=== PATIENT | female | born 1995 | race Caucasian/White ===

== ENCOUNTER 2017-03-04 23:49 | Emergency (ER) | payer OTHER ==
[2017-03-04] MEDS ORDERED: 0.9 % SODIUM CHLORIDE 1,000 ML IV ONE ×2 (23:50→23:51)
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
[2017-03-05 00:16] LABS: BASOPHILS % 0.5 (0.0-1.5); EOSINOPHILS % 0.8 % (0.0-6.8); MEAN CORPUSCULAR HEMOGLOBIN 29.9 pg (28.0-34.0); MEAN CORPUSCULAR VOLUME 88.9 fl (80.0-100.0); MONOCYTES % 5.9 % (0.0-11.0); NEUTROPHILS # 4.4 # k/uL (1.4-7.7)
[2017-03-05 00:28] LABS: eGFR (African) > 60; eGFR (Non-African) > 60
[2017-03-05] MEDS ORDERED: NEOMYCIN SU/BACITRAC ZN/POLY 1 EACH OINT.PACK TP ONE (00:40)
[2017-03-05 01:00] VITALS: BP 124/89
--- NOTE | 2017-03-05 06:27 | Diagnostic Imaging Report ---
ALEIDA MASTERS (KIARA) - ER [facility] [address] [facility] [id number] Report Submission Date: Mar 05, 2017 12:46:50 AM CDT Patient Study Name: LISANDRA OCHOA Date: Mar 05, 2017 12:27:13 AM CDT Modality Type: CR Gender: F Description: UPPER EXTREMITY : 89 Institution: [facility] Physician: ALEIDA MASTERS) - ER Right hand - three views Clinical history: Injury. Pain. Findings: Examination of the right hand in palmar, lateral and oblique views fails to demonstrate evidence of fracture, dislocation or other bone or joint pathology. Electronically signed on Mar 05, 2017 12:46:50 AM CDT by: Michael FREGOSO
== END 2017-03-05 00:55 | disposition home or self-care (01) ==
LOC: ED 23:49
DX: S60.511A Abrasion of right hand, initial encounter (principal); X58.XXXA Exposure to other specified factors, initial encounter; Y93.9 Activity, unspecified; Y99.9 Unspecified external cause status; F10.129 Alcohol abuse with intoxication, unspecified
CPT/HCPCS: 73130; 80053; 80320; 84703; 85025; J7030; 96360; 99284; G0480; S1016

== ENCOUNTER 2018-05-03 15:50 | Outpatient (CLI) | payer OTHER | END 2018-05-03 15:52 | LOC: LAB 15:50 | PROVIDERS: ATTEND Physician Assistant | DX: N92.6 Irregular menstruation, unspecified (principal) | CPT/HCPCS: 36415; 84702 ==